=== PATIENT | male | born 1935 | race Caucasian/White ===

== ENCOUNTER 2016-12-30 12:38 | Emergency (ER) | payer MEDICARE, BC ==
[~2016-12-30] VITALS: Ht 154.9 cm; Wt 68.2 kg
[~2016-12-30 12:38] MED LIST: ASPIRIN ADULT L81 M2 PO; DEPO-TESTOS100 MG/ML IM; KEFLEX500 M1 PO; LANTUS100 MG/ML SC; LASIX 20 MG TAB20 MG PO; LIPITOR20 MG PO; LISINOPRIL10 MG PO; LISINOPRIL20 M1 PO; PLAVIX75 MG PO
[2016-12-30] MEDS ORDERED: AMLODIPINE2.5 MG PO (12:56)
[2016-12-30] MEDS ORDERED: LORTAB 5-325 MG1 TAB PO (12:58)
[2016-12-30] MEDS ORDERED: LANTUS100 MG/ML SC (12:58)
[2016-12-30] MEDS ORDERED: MELATONIN3 MG PO (12:59)
[2016-12-30] MEDS ORDERED: PROTONIX40 M2 PO (12:59)
[2016-12-30] MEDS ORDERED: PROBIOTIC1 TAB PO (13:00)
[2016-12-30] MEDS ORDERED: MILK OF MAG2 PO (13:00)
[2016-12-30] MEDS ORDERED: ZOFRAN4 M1 PO (13:00)
[2016-12-30 13:37] LABS: HEMATOCRIT 39.8 % (39.0-50.0); HEMOGLOBIN 13.5 g/dl (14.0-18.0); IMMATURE GRANULOCYTES 1.8 % (0.0-1.0); MEAN CELL VOLUME 91.9 fL CALC (80.0-100.0); MEAN CORPUSCULAR HGB 31.2 pG CALC (26.0-32.0); MEAN CORPUSCULAR HGB CONC 33.9 g/L CALC (32.0-36.0); PLATELET COUNT 519 thou/uL (130-400); RED BLOOD COUNT 4.33 mill/uL (4.70-6.10); RED CELL DISTRI WIDTH 14.1 % (11.5-15.5)
[2016-12-30 13:48] LABS: INTERNATIONAL NORMALIZED RATIO 1.6 RATIO (0.7-1.3); PROTHROMBIN TIME 17.8 SECONDS (9.0-12.5)
[2016-12-30 13:50] LABS: ALBUMIN 3.1 g/dL (3.2-5.0); ALKALINE PHOSPHATASE 177 u/l (38-126); AMYLASE < 30 u/l (30-110); ANION GAP 19 (6-22 (CALC)); BILIRUBIN, TOTAL 0.4 mg/dL (0.0-1.4); BUN 27 mg/dL (8-23); BUN/CREATININE RATIO 9 (12-20 (CALC)); CALCIUM 9.2 mg/dL (8.4-10.2); CARBON DIOXIDE 17 mmol/l (22-30); CHLORIDE 101 mmol/l (95-108); CREATININE 2.9 mg/dL (0.7-1.3); GFR 21 ML/MIN (>=60 (CALC)); GFR FOR AFR.AMER. 25 ML/MIN (>=60 (CALC)); GLUCOSE 219 mg/dL (82-115); LIPASE 16 u/l (23-300); POTASSIUM 3.4 mmol/l (3.5-5.1); SGOT/AST 38 u/l (19-48); SGPT/ALT 42 u/l (11-66); SODIUM 134 mmol/l (137-146); TOTAL PROTEIN 7.1 g/dL (6.3-8.2)
[2016-12-30 13:54] LABS: BAND 34 % (0-8); MANUAL DIFFERENTIAL YES
[2016-12-30 14:03] LABS: MYOGLOBIN 167 ng/mL (0 - 121)
[2016-12-30 16:40] VITALS: BP 151/65
== END 2016-12-30 16:40 | disposition short-term general hospital (02) ==
LOC: ED 12:38
PROVIDERS: Emergency Medicine
PROC: 0T9B70Z Drainage of Bladder with Drainage Device, Via Natural or Artificial Opening (ICD-10-PCS; principal; 2016-12-30)
DX: K81.0 Acute cholecystitis (principal); A41.9 Sepsis, unspecified organism; N19 Unspecified kidney failure; R11.2 Nausea with vomiting, unspecified; R19.7 Diarrhea, unspecified; R10.11 Right upper quadrant pain; R10.31 Right lower quadrant pain